=== PATIENT | female | born 1990 | race Caucasian/White ===

== ENCOUNTER 2025-10-23 13:47 | Observation (INO) ==
[2025-10-23] MEDS: OPTIRAY 320 125ml IV ONE (14:08)
--- NOTE | 2025-10-23 14:16 | Emergency Department Note ---
Impression & Plan Stroke-like symptoms, Acute right-sided weakness ED Provider Note NAME: TOSHA GONZALEZ AGE: 35 SEX: F : 1990 ARRIVES VIA: Walk-In INFORMANT: Patient, ED PROVIDER(S): Cameron Jones DO CHIEF COMPLAINT: Strokelike symptoms HPI: The patient is a 35-year-old female who presented to the emergency department through triage. She was made a stroke alert from triage. I evaluated the patient in the room A1 once she returned from CAT scan. The patient states that over the last few days she has not been feeling well. She was seen at a different emergency department locally for similar complaints. The patient states she has right sided weakness including her arm her leg and her face. She has a history of a stroke in the past but she states that her symptoms had almost completely resolved. She states she went to bed last evening around 7:30 PM. She was feeling a little off and had a slight headache and when she woke today she felt like this. The patient denies having any fever or neck pain. The patient's been compliant with her outpatient medications otherwise. ROS: See above HPI for pertinent positives & negatives. A total of 10 systems reviewed and were otherwise negative. PAST MEDICAL HISTORY: See Below PAST SURGICAL HISTORY: See Below FAMILY HISTORY: See Below SOCIAL HISTORY: See Below HOME MEDICATIONS: See Below ALLERGIES: See Below VITALS: See Below PHYSICAL EXAMINATION: GENERAL: Patient is awake alert in no acute distress patient is resting comfortably and showing no signs of anxiety EYES: The conjunctivae are clear. The pupils are round and reactive. Extraocular muscles are intact. EARS, NOSE, MOUTH AND THROAT: The nose is without any evidence of any deformity. NECK: The neck is nontender and supple. RESPIRATORY: Normal respiratory effort is noted there is no evidence of wheezing rhonchi or rales CARDIOVASCULAR: Regular rate and rhythm noted there no murmurs rubs or gallops normal S1 normal S2. GASTROINTESTINAL: The abdomen is soft. Abdomen is nontender. MUSCULOSKELETAL/EXTREMITIES: There is no evidence of gross deformity full range of motion is noted in the hips and shoulders. SKIN: There is no obvious evidence of any rash. There are no petechiae, pallor or cyanosis noted. NEUROLOGIC: Patient is awake alert and oriented x3. There is a drift in the right upper extremity. The patient is able to hold each leg off of the bed but the right leg does fall to bed and under 5 seconds. There is a facial droop with forehead sparing noted. Speech is clear. MEDICAL DECISION MAKING: The patient is a 35-year-old female who presented to the emergency department for strokelike symptoms. The patient has a history of similar episodes in the past. She was outside of the 4-1/2-hour window so she was not considered a candidate for TNK. Despite having an elevated NIH stroke score the patient did not have a large vessel occlusion. The patient was evaluated by the telestroke neurologist. I discussed the patient's laboratory and radiographic studies with her. Given her ongoing symptoms she would be a better candidate for inpatient management. I discussed her condition with the on-call [facility] hospitalist. They have agreed to evaluate the patient in the emergency department for further management and disposition. Triage Nursing notes reviewed. Prior medical records reviewed Vital Signs: reviewed and remarkable for no significant abnormalities Differential diagnosis: Infection, dehydration, metabolic abnormality, hypo/hyperglycemia, electrolyte disturbance, anemia, hypoxia, cardiac sources, intracerebral event, toxicologic, neurologic, as well as other pathologies. ER treatment provided: See below Diagnostics interpreted by me: ECG: EKG was obtained in the emergency department. My interpretation is normal sinus rhythm at 78 bpm. There was no ectopy. There was no acute ST segment abnormalities noted. QTc was 440 ms. Cardiac Monitoring: An order was placed for continuous cardiac monitoring. The monitor shows a rate of 79 bpm with sinus rhythm. Laboratory studies: As stated above and show below. Imaging studies: See below. Radiographic imaging was reviewed by myself Consultation(s): I discussed this case with Dr. Hanson who is on-call for telestroke neurology at [facility]. I discussed this case with Dr. Sierra who is on-call for the [facility] hospitalist group. Past Med/Surg History Problem List (Updated 10/23/25 @ 15:33 by Cameron Jones DO) Acute right-sided weakness (Acute) Stroke-like symptoms (Acute) Vertebral body hemangioma Prothrombin gene mutation Functional neurological symptom disorder (conversion disorder), with abnormal movement Apraxia Stenosis of intracranial vessel Seizure-like activity Hemiplegia affecting dominant side Stroke-like symptoms ADHD SHAN (generalized anxiety disorder) Vitamin D deficiency Anxiety Cervicalgia Dysarthria Aphasia Hemiplegic migraine Medical History Cervical cancer No pertinent past medical history No pertinent family history Surgical History H/O gastric bypass S/P dilatation and curettage S/P hysterectomy No pertinent past surgical history Family History Grandmother (Maternal) Breast cancer Mother Heart disease Father Sleep apnea Social History Smoking Status: Former smoker Preferred Language: Norwegian Communication Ability: Effective Spice Cleaner Required: No Beliefs That Will Affect Care: Spiritual Current Living Situation: Spouse Feels Safe at Home: Yes Allergies Allergies Allergy/AdvReac Type Severity Reaction Status Date / Time cortisone Allergy Severe FACE & Verified 10/23/25 15:21 NECK SWELLED AFTER INJ IN LOWER BACK mushroom Allergy Severe Anaphylaxis Verified 10/23/25 15:21 tioconazole Allergy Severe SWELLED Verified 10/23/25 15:21 [From Monistat 1 VAGINAL (tioconazole)] OPENING "SHUT" Latex, Natural Rubber Allergy Intermediate Hives Verified 10/23/25 15:21 morphine Allergy Intermediate Hives Verified 10/23/25 15:21 yellow dye Allergy Intermediate HIVES-YELLOW Verified 10/23/25 15:21 DYE IN TATTOO cephalexin Allergy Unknown CAN'T Verified 10/23/25 15:21 REMEMBER yellow food coloring Allergy Intermediate Hives Uncoded 10/23/25 15:21 Home Meds Home Medications Medication Instructions Recorded Confirmed multivitamin 1 tab PO QAM 08/24/21 10/23/25 aspirin 81 mg tablet,delayed 81 mg PO DAILY 08/02/24 10/23/25 release atorvastatin 80 mg tablet 80 mg PO QPM 08/02/24 10/23/25 amitriptyline 25 mg tablet 25 mg PO HS 08/03/24 10/23/25 magnesium oxide 400 mg PO BID 08/03/24 10/23/25 ondansetron HCl 4 mg tablet 4 mg PO Q6H PRN NAUSEA/VOMITING 08/03/24 10/23/25 acetaminophen 325 mg tablet 325 mg PO BID 10/23/25 10/23/25 cholecalciferol (vitamin D3) 25 25 mcg PO DAILY 10/23/25 10/23/25 mcg (1,000 unit) capsule (Vitamin D3) cyclobenzaprine 5 mg tablet 5 mg PO TID 10/23/25 10/23/25 duloxetine 20 mg capsule,delayed 40 mg PO DAILY 10/23/25 10/23/25 release ergocalciferol (vitamin D2) 1,250 50,000 unit PO WK 10/23/25 10/23/25 mcg (50,000 unit) capsule famotidine 10 mg tablet 10 mg PO BIDM 10/23/25 10/23/25 hydroxyzine pamoate 25 mg capsule 25 mg PO BID 10/23/25 10/23/25 sennosides 8.6 mg tablet 8.6 mg PO HS 10/23/25 10/23/25 verapamil 40 mg tablet 40 mg PO BID 10/23/25 10/23/25 Previous Rx's Medication Instructions Recorded valproic acid (as sodium salt) 500 500 mg (10 mL) PO BID #1,000 mL 10/30/24 mg/10 mL (10 mL) oral solution Results & Data (ED) Vital Signs Vital Signs - 24 hr 10/23/25 13:47 10/23/25 14:09 10/23/25 14:15 Temperature 36.6 C Temperature Source Temporal Artery Scan Pulse Rate 79 84 Pulse Rate [Apical] Pulse Rate from SpO2 Sensor 83 Respiratory Rate 18 19 Blood Pressure 121/84 Blood Pressure [Left Arm] Blood Pressure Mean 96 Blood Pressure Mean [Left Arm] Pulse Oximetry 97 98 Oxygen Delivery Method Room Air Room Air Sepsis Recent Fever Within 48 Hours No Sepsis New/Unexplained Change in Mental Status N/A Sepsis Action Taken by Nursing No Action Required 10/23/25 14:16 10/23/25 14:17 10/23/25 14:29 Temperature Temperature Source Pulse Rate Pulse Rate [Apical] 78 Pulse Rate from SpO2 Sensor Respiratory Rate 18 Blood Pressure 118/84 123/83 Blood Pressure [Left Arm] 139/106 H Blood Pressure Mean 92 95 Blood Pressure Mean [Left Arm] 117 Pulse Oximetry 98 Oxygen Delivery Method Room Air Sepsis Recent Fever Within 48 Hours Sepsis New/Unexplained Change in Mental Status Sepsis Action Taken by Nursing 10/23/25 14:30 10/23/25 15:00 10/23/25 15:25 Temperature Temperature Source Pulse Rate 81 74 Pulse Rate [Apical] 79 Pulse Rate from SpO2 Sensor 73 Respiratory Rate 19 13 16 Blood Pressure 119/71 Blood Pressure [Left Arm] 119/71 Blood Pressure Mean 87 Blood Pressure Mean [Left Arm] 87 Pulse Oximetry 99 99 100 Oxygen Delivery Method Room Air Room Air Room Air Sepsis Recent Fever Within 48 Hours Sepsis New/Unexplained Change in Mental Status Sepsis Action Taken by Half-Way Medications Current Medication List: was personally reviewed by me Laboratory Data Attestation: I reviewed the patient's lab results. 10/23/25 14:15 10/23/25 14:15 Lab Results 10/23/25 Range/Units 14:15 WBC 5.61 (4.8-10.8) K/ul RBC 4.09 L (4.20-5.40) M/uL Hgb 11.2 L (12.0-16.0) g/dL Hct 34.3 L (37.0-47.0) % MCV 83.9 (80.0-100.0) fL MCH 27.4 (25.0-34.0) pg MCHC 32.7 (32.0-36.0) g/dL RDW Std Deviation 39.2 (36.4-46.3) fL RDW Coeff of Robert 13.0 (11.5-14.5) % Plt Count 172 (130-400) K/uL MPV 9.9 (9.4-12.4) fL Immature Gran % (Auto) 0.2 % Neut % (Auto) 52.4 % Lymph % (Auto) 38.7 % [place] % (Auto) 6.6 % Eos % (Auto) 1.6 % Baso % (Auto) 0.5 % Neut # (Auto) 2.94 (1.40-6.50) K/uL Lymph # (Auto) 2.17 (1.20-3.40) K/uL [place] # (Auto) 0.37 (0.11-0.59) K/uL Eos # (Auto) 0.09 (0.00-0.50) K/uL Baso # (Auto) 0.03 (0.00-0.20) K/uL Immature Gran # (Auto) 0.01 (0.01-0.20) K/uL ESR < 1 (0-20) mm/hr PT 11.0 (9.0-12.0) Seconds INR 1.0 (0.9-1.1) APTT 26 (21-31) Seconds PTT Ratio 1.0 Sodium 136 (136-145) mmol/L Potassium 3.4 L (3.5-5.1) mmol/L Chloride 104 (98-107) mmol/L Carbon Dioxide 26 (21-32) mmol/L Anion Gap 6 (3-11) BUN 12 (6-23) mg/dl Creatinine 0.64 (0.6-1.2) mg/dl Est Cr Clr Drug Dosing 127.3 ml/min eGFR 119.59 BUN/Creatinine Ratio 18.8 (10-20) Glucose 85 (70-99(Fasting)) mg/dl Calcium 8.5 L (8.6-10.3) mg/dl Magnesium 2.0 (1.7-2.4) mg/dl Total Bilirubin 0.4 (0.2-1.0) mg/dl AST 13 (13-39) U/L ALT 13 (7-52) U/L Alkaline Phosphatase 43 (34-104) U/L Troponin I High Sens < 2.3 (0-14) pg/ml C-Reactive Protein < 0.50 (0-0.5) mg/dl Total Protein 6.4 (6.0-8.3) gm/dl Albumin 3.7 (3.4-5.0) gm/dl Globulin 2.7 (2.5-4.0) gm/dl Albumin/Globulin Ratio 1.4 (0.9-2) HCG, Qual Negative (Negative) Administered Medications Discontinued Medications Ioversol (Optiray 320 125ml) 120 ml IV ONCE ONE Stop: 10/23/25 14:09 Last Admin: 10/23/25 14:08 Dose: 120 ml Documented By: LUZ MARINA Imaging Data Attestation: I personally reviewed and interpreted this imaging study as follows: My Impression: 1 view chest x-ray was obtained in the emergency department. My interpretation is no free air or definite infiltrate, final report below. Radiologist's Impression: Chest X-Ray 10/23/25 13:54 XR chest 1V portable CLINICAL HISTORY: stroke alert COMPARISON STUDY: Chest radiograph August 24, 2021. FINDINGS: Lung volumes are normal. Lungs are clear. There is no pneumothorax or pleural effusion. Cardiac size is normal. Mediastinal contours are normal. There is no evidence for pulmonary edema. Electronic device projects over the left chest. IMPRESSION: No acute cardiopulmonary findings. ACT 112: Negative or not required by law. Electronically signed by: Manoj Interiano M.D. 10/23/2025 2:[address] 10/23/25 13:54 CT SCAN OF THE BRAIN WITHOUT IV CONTRAST CLINICAL HISTORY: Right-sided weakness. History of prior stroke. COMPARISON STUDY: MRI dated 05/06/2025 TECHNIQUE: Unenhanced axial CT scan of the brain was performed from the vertex to the skull base. A dose lowering technique was utilized adhering to the principles of ALARA. CT DOSE: FINDINGS: No intraventricular extra-axial mass lesions are visualized. There is no CT evidence of acute cortical infarction. The ventricular system is of normal size and configuration for age. There is no midline shift. There is no evidence of acute hemorrhage. No orbital lesions are visualized. No calvarial lesions are visualized. IMPRESSION: Normal MRI of the brain. ACT 112: Negative or not required by law. Electronically signed by: Steven Nguyễn M.D. 10/23/2025 2:18 PM Head CTA 10/23/25 13:54 CT angio head w con CLINICAL HISTORY: 35 years-old Female with neuro deficit, acute stroke suspected. Acute stroke like symptoms COMPARISON STUDY: Head CT same day TECHNIQUE: Following the IV administration of 120 cc of Optiray, CT angiogram of the brain was performed from the skull base to the vertex. Images are reviewed in the axial, sagittal, and coronal planes. 3-D MIPS images are created and assessed. IV contrast was administered without complication. All measurements were obtained according to NASCET criteria. A dose lowering technique was utilized adhering to the principles of ALARA. FINDINGS: CT BRAIN: Dictated separately. CT ANGIOGRAM OF THE BRAIN: The imaged bilateral internal carotid arteries are patent. The bilateral anterior and middle cerebral arteries are also patent. The vertebrobasilar system and posterior cerebral arteries are widely patent. There is no aneurysm, high-grade stenosis, or proximal branch occlusion identified. Dural sinuses appear patent. IMPRESSION: Unremarkable CTA of the head. ACT 112: Negative or not required by law. The above report was generated using voice recognition software. It may contain grammatical, syntax or spelling errors. Electronically signed by: Leonel Concepcion M.D. 10/23/2025 2:30 PM Neck CTA 10/23/25 13:54 CT ANGIOGRAPHY OF THE NECK WITH CONTRAST CLINICAL HISTORY: neuro deficit, acute stroke suspected. Right-sided weakness. COMPARISON STUDY: CTA of the neck October 10, 2024. Technique: CT angiography of the carotid and vertebral arteries was obtained using Optiray and 3D reconstruction on an independent workstation. NASCET criteria was utilized. Automated exposure control was utilized for the study. A dose lowering technique was utilized adhering to the principles of ALARA. CT DOSE: 950.97 mGy.cm Findings: Visualized portions of the lung apices are unremarkable. There are no cervical spine fractures. There is no cervical lymphadenopathy. The bilateral common carotid, cervical internal carotid and vertebral arteries are patent. The right vertebral artery is dominant. There is no stenosis, aneurysm or dissection within the major vasculature of the neck. IMPRESSION: Unremarkable CTA of the neck. ACT 112: Negative or not required by law. Electronically signed by: Manoj Interiano M.D. 10/23/2025 2:24 PM Discharge Plan Visit Data Chief Complaint: Neuro Symptoms/Deficit Stated Complaint: FACIAL DROOPING, R SIDE WEAKNESS, HX STROKE ED Provider: Cameron Jones Discharge Problem: Stroke-like symptoms, Acute right-sided weakness Patient Disposition: Being Evaluated by Hospitalist Condition: Fair Forms Stand Alone Forms: My [facility] [place] [employer] Prescriptions Prescriptions: No Action atorvastatin 80 mg tablet 80 mg PO QPM aspirin 81 mg tablet,delayed release (DR/EC) 81 mg PO DAILY amitriptyline 25 mg tablet 25 mg PO HS ondansetron HCl 4 mg tablet 4 mg PO Q6H PRN (Reason: NAUSEA/VOMITING) magnesium oxide 400 mg magnesium capsule 400 mg PO BID valproic acid (as sodium salt) 500 mg/10 mL (10 mL) solution 500 mg PO BID Qty: 1000 2RF multivitamin Tablet 1 tab PO QAM sennosides 8.6 mg tablet 8.6 mg PO HS acetaminophen 325 mg tablet 325 mg PO BID famotidine 10 mg tablet 10 mg PO BIDM Rx Instructions: 0800 & 1600 ergocalciferol (vitamin D2) 1,250 mcg (50,000 unit) capsule 50,000 unit PO WK Rx Instructions: MONDAYS hydroxyzine pamoate 25 mg capsule 25 mg PO BID cholecalciferol (vitamin D3) [Vitamin D3] 25 mcg (1,000 unit) Capsule 25 mcg PO DAILY cyclobenzaprine 5 mg tablet 5 mg PO TID duloxetine 20 mg capsule,delayed release(DR/EC) 40 mg PO DAILY verapamil 40 mg tablet 40 mg PO BID Referrals Referrals: Liu Estrella, [employer] MACHINE OPERATOR-C [Primary Care Provider] -
--- NOTE | 2025-10-23 14:19 | CT Scan Report ---
CT SCAN OF THE BRAIN WITHOUT IV CONTRAST CLINICAL HISTORY: Right-sided weakness. History of prior stroke. COMPARISON STUDY: MRI dated 05/06/2025 TECHNIQUE: Unenhanced axial CT scan of the brain was performed from the vertex to the skull base. A dose lowering technique was utilized adhering to the principles of ALARA. CT DOSE: FINDINGS: No intraventricular extra-axial mass lesions are visualized. There is no CT evidence of acute cortical infarction. The ventricular system is of normal size and configuration for age. There is no midline shift. There is no evidence of acute hemorrhage. No orbital lesions are visualized. No calvarial lesions are visualized. IMPRESSION: Normal MRI of the brain. ACT 112: Negative or not required by law. Electronically signed by: Steven Nguyễn M.D. 10/23/2025 2:18 PM
--- NOTE | 2025-10-23 14:25 | CT Scan Report ---
CT ANGIOGRAPHY OF THE NECK WITH CONTRAST CLINICAL HISTORY: neuro deficit, acute stroke suspected. Right-sided weakness. COMPARISON STUDY: CTA of the neck October 10, 2024. Technique: CT angiography of the carotid and vertebral arteries was obtained using Optiray and 3D rec onstruction on an independent workstation. NASCET criteria was utilized. Automated exposure control was utilized for the study. A dose lowering technique was utilized adhering to the principles of ALA RA. CT DOSE: 950.97 mGy.cm Findings: Visualized portions of the lung apices are unremarkable. There are no cervical spine fractu res. There is no cervical lymphadenopathy. The bilateral common carotid, cervical internal carotid an d vertebral arteries are patent. The right vertebral artery is dominant. There is no stenosis, aneury sm or dissection within the major vasculature of the neck. IMPRESSION: Unremarkable CTA of the neck. ACT 112: Negative or not required by law. Electronically signed by: Manoj Interiano M.D. 10/23/2025 2:24 PM
[2025-10-23 14:28] LABS: Hematocrit (blood only) 34.3 % (37.0-47.0); Hemoglobin 11.2 g/dL (12.0-16.0); Immature Granulocytes # (auto) 0.01 K/uL (0.01-0.20); Immature Granulocytes % (auto) 0.2 %; Mean Corpuscular Hemoglobin 27.4 pg (25.0-34.0); Mean Corpuscular Volume 83.9 fL (80.0-100.0); Platelet Count 172 K/uL (130-400); RDW Standard Deviation 39.2 fL (36.4-46.3); Red Blood Count 4.09 M/uL (4.20-5.40); White Blood Count 5.61 K/ul (4.8-10.8)
--- NOTE | 2025-10-23 14:31 | CT Scan Report ---
CT angio head w con CLINICAL HISTORY: 35 years-old Female with neuro deficit, acute stroke suspected. Acute stroke lik e symptoms COMPARISON STUDY: Head CT same day TECHNIQUE: Following the IV administration of 120 cc of Optiray, CT angiogram of the brain was perfor med from the skull base to the vertex. Images are reviewed in the axial, sagittal, and coronal planes . 3-D MIPS images are created and assessed. IV contrast was administered without complication. All me asurements were obtained according to NASCET criteria. A dose lowering technique was utilized adherin g to the principles of ALARA. FINDINGS: CT BRAIN: Dictated separately. CT ANGIOGRAM OF THE BRAIN: The imaged bilateral internal carotid arteries are patent. The bilateral anterior and middle cerebral arteries are also patent. The vertebrobasilar system and posterior cerebral arteries are widely kirk nt. There is no aneurysm, high-grade stenosis, or proximal branch occlusion identified. Dural sinuses appear patent. IMPRESSION: Unremarkable CTA of the head. ACT 112: Negative or not required by law. The above report was generated using voice recognition software. It may contain grammatical, syntax o r spelling errors. Electronically signed by: Leonel Concepcion M.D. 10/23/2025 2:30 PM
--- NOTE | 2025-10-23 14:34 | XRay Report ---
XR chest 1V portable CLINICAL HISTORY: stroke alert COMPARISON STUDY: Chest radiograph August 24, 2021. FINDINGS: Lung volumes are normal. Lungs are clear. There is no pneumothorax or pleural effusion. Car diac size is normal. Mediastinal contours are normal. There is no evidence for pulmonary edema. Elect ronic device projects over the left chest. IMPRESSION: No acute cardiopulmonary findings. ACT 112: Negative or not required by law. Electronically signed by: Manoj Interiano M.D. 10/23/2025 2:33 PM
--- NOTE | 2025-10-23 14:43 | Electrocardiogram Report ---
Test Reason : Blood Pressure : */* mmHG Vent. Rate : 78 BPM Atrial Rate : 78 BPM P-R Int : 132 ms QRS Dur : 98 ms QT Int : 386 ms P-R-T Axes : 73 34 45 degrees QTcB Int : 440 ms Normal sinus rhythm Incomplete right bundle branch block Borderline ECG No previous ECGs available Confirmed by Caemron Sal ([id number]) on 10/23/2025 2:42:53 PM Referred By: Confirmed By: Cameron Sal
[2025-10-23 14:46] LABS: Alanine Aminotransferase 13 U/L (7-52); Albumin Globulin Ratio 1.4 (0.9-2); Albumin Level 3.7 gm/dl (3.4-5.0); Alkaline Phosphatase 43 U/L (34-104); Anion Gap 6 (3-11); Bilirubin,Total 0.4 mg/dl (0.2-1.0); Blood Urea Nitrogen 12 mg/dl (6-23); Calcium 8.5 mg/dl (8.6-10.3); Carbon Dioxide 26 mmol/L (21-32); Chloride 104 mmol/L (98-107); Creatinine Clr Calc Pharmacy 127.3 ml/min; Globulin 2.7 gm/dl (2.5-4.0); Glucose 85 mg/dl (70-99(Fasting)); Magnesium 2.0 mg/dl (1.7-2.4); Potassium 3.4 mmol/L (3.5-5.1); Sodium 136 mmol/L (136-145); Total Protein 6.4 gm/dl (6.0-8.3)
[2025-10-23 14:49] LABS: Pregnancy Test, Serum Negative (Negative)
[2025-10-23 14:57] LABS: INR 1.0 (0.9-1.1); Partial Thromboplastin Time 26 Seconds (21-31); Prothrombin Time 11.0 Seconds (9.0-12.0)
--- NOTE | 2025-10-23 16:38 | History & Physical Report ---
Date of Service October 23, 2025 Assessment & Plan (1) Stroke-like symptoms: (2) Prothrombin gene mutation: (3) Seizure-like activity: Plan In summary this is a 35-year-old female who presents with sudden onset right sided facial weakness that is persisted overnight from initial symptoms onset on 09/22 in the late evening #Stroke-Like Symptoms // Prothrombin gene mutation Patient presented with right sided facial weakness; last known well was in the late afternoon on 10/22; had previous presentation in 06/2024 at that time was assessed as TIA/CVA, again presented with the similar symptoms specifically with only right sided facial weakness in the early portion of 09/2025, treated as Mobley's palsy and resolved; does follow with neurology in the outpatient setting with recent assessment to rule out multiple sclerosis which was negative; ABCD2 score of 2, NIHSS score of 4 (3 points of which are residual symptoms from prior event in 2023); in summary, at this time we will continue to manage as a presumed CVA until proven otherwise by imaging studies - 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 - No indication for antiplatelet loading at this time based on ABCD2 and NIHSS; if MRI is without evidence of CVA, would anticipate not pursuing DAPT as alternative non-vascular cause is more likely - Pending A1c - MRI brain without contrast pending - No indication for TTE at this time; study obtained at external hospital facility in 06/2024 was without evidence of cardiac shunt - No clear indication for IVF at this time - Neurology consulted #Seizure-like activity Chronic condition with reported seizure episode on 10/21, described in similarity to an abscence seizure; nonadherent with established antiepileptic therapy in the outpatient setting, will resume during hospital stay; stroke-like symptoms may be recrudescence of prior neurologic injury in the setting of recent breakthrough seizure, though unsure if this is well evidenced The remainder the patient's chronic medical conditions are stable and do not require adjustment to their outpatient regimen at this time History of Present Illness Chief Complaint: Sudden onset right facial weakness Primary Care Provider: EDUIN [place] Ms. Marcano is a 35-year-old female whose active medical conditions include hemip legic migraine, epilepsy, functional neurologic symptom disorder, heterozygous prothrombin gene mutation, vertebral body hemangioma among other chronic medical conditions who presents to the [facility] on 10/23 due to sudden onset and persistent right facial weakness that began in the evening of 10/22. The patient was recently evaluated at an external hospital system for similar presentation, diagnosed with Mobley's palsy and given a course of acyclovir with improvement of their symptomatology. At that time the facial weakness involve the entirety of the right face. At presentation today, the patient's weakness primarily involves the face beneath the level of the eye on the right side again. They had similar symptoms that they presented with to an external hospital system approximately 1 year prior with concerns of TIA/CVA. At that time the patient had also presented with right upper and lower extremity weakness, which they still have some degree of to this point in time however are without acute worsening of these symptoms. The patient does endorse slight worsening of their right lower extremity weakness, having increased use of a cane that was previously provided to them for recovery in the past few days. He denies any recent medication adjustments or additions in the outpatient setting. They did recently have diagnostic assessment for possible multiple sclerosis as well as hypercoagulability panel which revealed heterozygosity for prothrombin gene mutation. They were referred to hematology for evaluation who recommended initiation of DOAC therapy which was deferred as the patient does have intermittent episodes of bloody stools which have not yet been evaluated in the outpatient setting. The patient does report having a "seizure episode" that occurred on 10/21 that was a prolonged period of "staring". They have not had an episode of this in quite some time however the patient does report nonadherence with their prescribed valproic acid. Allergies Allergy/AdvReac Type Severity Reaction Status Date / Time cortisone Allergy Severe FACE & Verified 10/23/25 15:21 NECK SWELLED AFTER INJ IN LOWER BACK mushroom Allergy Severe Anaphylaxis Verified 10/23/25 15:21 tioconazole Allergy Severe SWELLED Verified 10/23/25 15:21 [From Monistat 1 VAGINAL (tioconazole)] OPENING "SHUT" Latex, Natural Rubber Allergy Intermediate Hives Verified 10/23/25 15:21 morphine Allergy Intermediate Hives Verified 10/23/25 15:21 yellow dye Allergy Intermediate HIVES-YELLOW Verified 10/23/25 15:21 DYE IN TATTOO cephalexin Allergy Unknown CAN'T Verified 10/23/25 15:21 REMEMBER yellow food coloring Allergy Intermediate Hives Uncoded 10/23/25 15:21 Home Medications Medication Instructions Recorded Confirmed Type multivitamin 1 tab PO QAM 08/24/21 10/23/25 History aspirin 81 mg tablet,delayed 81 mg PO DAILY 08/02/24 10/23/25 History release atorvastatin 80 mg tablet 80 mg PO QPM 08/02/24 10/23/25 History amitriptyline 25 mg tablet 25 mg PO HS 08/03/24 10/23/25 History magnesium oxide 400 mg PO BID 08/03/24 10/23/25 History ondansetron HCl 4 mg tablet 4 mg PO Q6H PRN NAUSEA/VOMITING 08/03/24 10/23/25 History valproic acid (as sodium salt) 500 500 mg (10 mL) PO BID #1,000 mL 10/30/24 10/23/25 Rx mg/10 mL (10 mL) oral solution acetaminophen 325 mg tablet 325 mg PO BID 10/23/25 10/23/25 History cholecalciferol (vitamin D3) 25 25 mcg PO DAILY 10/23/25 10/23/25 History mcg (1,000 unit) capsule (Vitamin D3) cyclobenzaprine 5 mg tablet 5 mg PO TID 10/23/25 10/23/25 History duloxetine 20 mg capsule,delayed 40 mg PO DAILY 10/23/25 10/23/25 History release ergocalciferol (vitamin D2) 1,250 50,000 unit PO WK 10/23/25 10/23/25 History mcg (50,000 unit) capsule famotidine 10 mg tablet 10 mg PO BIDM 10/23/25 10/23/25 History hydroxyzine pamoate 25 mg capsule 25 mg PO BID 10/23/25 10/23/25 History sennosides 8.6 mg tablet 8.6 mg PO HS 10/23/25 10/23/25 History verapamil 40 mg tablet 40 mg PO BID 10/23/25 10/23/25 History Past Med/Surg History Problem List (Updated 10/23/25 @ 17:06 by Florencio Sierra DO) Stroke-like symptoms (Acute) Vertebral body hemangioma (Chronic) Prothrombin gene mutation (Chronic) Functional neurological symptom disorder (conversion disorder), with abnormal movement (Chronic) Apraxia (Chronic) Stenosis of intracranial vessel (Chronic) Seizure-like activity (Chronic) Hemiplegia affecting dominant side (Chronic) SHAN (generalized anxiety disorder) (Chronic) Vitamin D deficiency (Chronic) Cervicalgia (Chronic) Hemiplegic migraine (Chronic) Medical History (Updated 10/23/25 @ 17:06 by Florencio Sierra DO) Cervical cancer Surgical History (Updated 10/23/25 @ 17:06 by Florencio Sierra DO) H/O gastric bypass S/P dilatation and curettage S/P hysterectomy Family History Grandmother (Maternal) Breast cancer Mother Heart disease Father Sleep apnea Social History Smoking Status: Former smoker Preferred Language: Persian Communication Ability: Effective Credit Collection Associate Required: No Beliefs That Will Affect Care: Spiritual Current Living Situation: Spouse Feels Safe at Home: Yes Review of Systems Review of Systems: Review of neurologic, constitutional, cardiovascular, pulmonary, gastrointestinal was unremarkable except for pertinent positive and negative findings discussed above Physical Exam Physical Exam: General: Adult female in no acute distress Vital Signs: Reviewed HEENT: Moist mucous membranes; pupils equally round and reactive to light; extraocular motion intact; no gross visual field deficits nor loss of visual acuity Pulmonary: Symmetric chest wall excursion without restriction; clear to auscultation bilaterally Cardiovascular: Regular rate and rhythm without murmurs, rubs, or gallops; S1 and S2 normal; right radial pulse 2+; no notable lower extremity edema Gastrointestinal: Soft, nontender; fullness appreciated in the area of the ascending colon and hepatic flexure with increased dullness to percussion compared to the remaining course of the colon without associated tenderness Musculoskeletal: No appreciable muscle atrophy nor anasarca Neurologic: Cranial nerves II through IV, , and VIII through XII intact; slight diminished sensation to touch involving right V2 and V3 and slight right sided nasolabial flattening and asymmetric smile; slightly diminished gross st rength assessment involving the right upper extremity compared to left with similar findings of the lower extremities; loss of sensation involving the L5 dermatome of the right lower extremity; speech is clear, with regular gustavo Results & Data Results & Data Vital Signs (Past 12 Hours) Vital Signs Temp Pulse Pulse Resp BP BP Pulse Ox 10/23/25 15:25 79 16 119/71 100 10/23/25 15:00 74 13 119/71 99 10/23/25 14:30 81 19 99 10/23/25 14:29 123/83 10/23/25 14:17 118/84 10/23/25 14:16 78 18 139/106 H 98 10/23/25 14:15 84 19 98 10/23/25 14:09 10/23/25 14:08 78 10/23/25 13:47 36.6 C 79 18 121/84 97 O2 Del Method 10/23/25 15:25 Room Air 10/23/25 15:00 Room Air 10/23/25 14:30 Room Air 10/23/25 14:29 10/23/25 14:17 10/23/25 14:16 Room Air 10/23/25 14:15 Room Air 10/23/25 14:09 Room Air 10/23/25 14:08 10/23/25 13:47 Diagnostic Findings Portable chest film without acute findings Head CT without contrast was without any abnormal findings CTA head and neck similarly were without any acute abnormal findings Code Status & VTE Plan Code Status Full Code VTE Prophylaxis Plan VTE Prophylaxis will be ordered: Yes PG Care Time/CCT Total # of Minutes Spent Total Time Spent with Patient: Total time spent is greater than 50% in coordination of care (as documented) at patient's floor/unit and/or counseling patient: Coding Level of Care Code 72144 INT INP/OBS CARE 2/55MIN Diagnoses Stroke-like symptoms R29.90 Prothrombin gene mutation D68.52 Seizure-like activity R56.9
[2025-10-23] MEDS ORDERED: PHARMACIST DISCHARGE MED REC CONSULT PRN (18:10)
--- NOTE | 2025-10-23 20:08 | Magnetic Resonance Report ---
MRI of the brain performed without IV contrast History: Slurred speech Comparison: 05/06/2025 Technique: Sagittal T1-weighted and axial T2-weighted, T2/FLAIR and diffusion-weighted with ADC map images of the brain were obtained without IV contrast. Findings: No evidence for intracranial mass lesion, mass-effect, midline shift, or abnormal extra-axial fluid collection. The ventricles and sulci are within normal limits for age. No abnormally reduced diffusion or evidence for acute infarct. Normal intravascular flow voids. Impression: Normal brain MRI Electronically signed by Robinson Pimentel 10-23-2025 8:08 PM
[2025-10-23] MEDS: FAMOTIDINE 10 MG TABLET PO SCH (21:16)
[2025-10-23] MEDS: ENOXAPARIN INJ 40 MG/0.4 ML SYR SQ SCH (21:17)
[2025-10-23] MEDS: VALPROIC ACID SOLN 500 MG/10 ML UDC PO SCH (21:17)
[2025-10-23] MEDS: ATORVASTATIN 40 MG TAB PO SCH (21:19)
[2025-10-23] MEDS: VERAPAMIL HCL 40 MG TAB PO SCH (21:19)
[2025-10-23] MEDS: CYCLOBENZAPRINE HCL 5 MG TAB PO SCH (21:20)
[2025-10-23] MEDS: AMITRIPTYLINE HCL 25 MG TAB PO SCH (21:21)
[2025-10-23] MEDS: ACETAMINOPHEN 500 MG TAB PO PRN (21:34)
[2025-10-24 06:44] LABS: Hematocrit (blood only) 36.2 % (37.0-47.0); Hemoglobin 12.1 g/dL (12.0-16.0); Mean Corpuscular Hemoglobin 28.2 pg (25.0-34.0); Mean Corpuscular Volume 84.4 fL (80.0-100.0); Platelet Count 172 K/uL (130-400); RDW Standard Deviation 39.8 fL (36.4-46.3); Red Blood Count 4.29 M/uL (4.20-5.40); White Blood Count 4.94 K/ul (4.8-10.8)
--- NOTE | 2025-10-24 07:27 | Hospitalist Progress Note ---
Date of Service October 24, 2025 Assessment & Plan (1) Stroke-like symptoms: (2) Prothrombin gene mutation: (3) Seizure-like activity: Plan In summary this is a 35-year-old female who presents with sudden onset right sided facial weakness that is persisted overnight from initial symptoms onset on 09/22 in the late evening #Stroke-Like Symptoms // Prothrombin gene mutation Patient presented with right sided facial weakness; last known well was in the late afternoon on 10/22; had previous presentation in 06/2024 at that time was assessed as TIA/CVA, again presented with the similar symptoms specifically with only right sided facial weakness in the early portion of 09/2025, treated as Mobley's palsy and resolved; does follow with neurology in the outpatient setting with recent assessment to rule out multiple sclerosis which was negative; ABCD2 score of 2, NIHSS score of 4 (3 points of which are residual symptoms from prior event in 2023); in summary, at this time we will continue to manage as a presumed CVA until proven otherwise by imaging studies - 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 - No indication for antiplatelet loading at admission based on ABCD2 and NIHSS - Pending A1c - MRI brain without contrast without evidence of vascular event - No indication for TTE at this time; study obtained at external hospital facility in 06/2024 was without evidence of cardiac shunt - No clear indication for IVF at this time - Neurology consulted #Seizure-like activity Chronic condition with reported seizure episode on 10/21, described in similarity to an absence seizure; nonadherent with established antiepileptic therapy in the outpatient setting, will resume during hospital stay; stroke-like symptoms may be recrudescence of prior neurologic injury in the setting of recent breakthrough seizure, though unsure if this is well evidenced The remainder the patient's chronic medical conditions are stable and do not require adjustment to their outpatient regimen at this time Admission and Anticipated Discharge Date Admission Date: October 23, 2025 Subjective Ms. Marcano is a 35-year-old female whose active medical conditions include hemiplegic migraine, epilepsy, functional neurologic symptom disorder, heterozygous prothrombin gene mutation, vertebral body hemangioma among other chronic medical conditions who presents to the [facility] on 10/23 due to sudden onset and persistent right facial weakness that began in the evening of 10/22. No acute overnight events Review of Systems Review of Systems: Review of neurologic, constitutional, cardiovascular, pulmonary, gastrointestinal was unremarkable except for pertinent positive and negative findings discussed above Physical Exam Physical Exam: General: Adult female in no acute distress Vital Signs: Reviewed HEENT: Moist mucous membranes; pupils equally round and reactive to light; extraocular motion intact; no gross visual field deficits nor loss of visual acuity Pulmonary: Symmetric chest wall excursion without restriction; clear to auscultation bilaterally Cardiovascular: Regular rate and rhythm without murmurs, rubs, or gallops; S1 and S2 normal; right radial pulse 2+; no notable lower extremity edema Gastrointestinal: Soft, nontender; fullness appreciated in the area of the ascending colon and hepatic flexure with increased dullness to percussion compared to the remaining course of the colon without associated tenderness Musculoskeletal: No appreciable muscle atrophy nor anasarca Neurologic: Cranial nerves II through IV, , and VIII through XII intact; slight diminished sensation to touch involving right V2 and V3 and slight right sided nasolabial flattening and asymmetric smile; remains with diminished strength of the right upper extremity compared to left; the right lower extremity has more notable weakness involving hip extension, knee flexion, and dorsiflexion in comparison to right hip flexion, knee extension, and plantarflexion; the entirety of the right lower extremity does have diminished weakness compared to the left; loss of sensation involving the L5 dermatome of the right lower extremity; speech is clear, with regular gustavo Results & Data Results & Data Vital Signs (Past 12 Hours) Vital Signs Temp Pulse Pulse Resp BP Pulse Ox O2 Del Method 10/24/25 07:19 69 10/24/25 05:47 74 10/24/25 04:03 36.5 C 85 18 112/76 97 Room Air 10/24/25 03:50 81 10/23/25 22:35 36.7 C 84 16 100/62 97 Room Air Diagnostic Findings MRI Brain without evidence of acute ischemic event PG Care Time/CCT Total # of Minutes Spent Total Time Spent with Patient: Total time spent is greater than 50% in coordination of care (as documented) at patient's floor/unit and/or counseling patient: Coding Level of Care Code 05869 SUB INP/OBS CARE 2/35MIN Diagnoses Stroke-like symptoms R29.90 Prothrombin gene mutation D68.52 Seizure-like activity R56.9
[2025-10-24 07:38] LABS: Albumin Level 4.2 gm/dl (3.4-5.0); Anion Gap 6.0 (3-11); Blood Urea Nitrogen 13.0 mg/dl (6-23); Calcium 8.7 mg/dl (8.6-10.3); Carbon Dioxide 28.0 mmol/L (21-32); Chloride 106.0 mmol/L (98-107); Creatinine Clr Calc Pharmacy 108.8 ml/min; Glucose 84.0 mg/dl (70-99(Fasting)); Potassium 4.0 mmol/L (3.5-5.1); Sodium 140.0 mmol/L (136-145)
[2025-10-24] MEDS: POLYETHYLENE (MIRALAX) 17 GM PACK PO SCH (07:42)
[2025-10-24] MEDS: ASPIRIN 81 MG ECTAB PO SCH (07:43)
[2025-10-24] MEDS: CHOLECALCIFEROL 25 MCG (1000 UNITS) TAB PO SCH (07:43)
[2025-10-24 07:46] LABS: Hemoglobin A1C 5.4 % (4.5-5.6)
[2025-10-24] MEDS: POLYETHYLENE (MIRALAX) 17 GM PACK ONE (08:05)
[2025-10-24] MEDS: METOCLOPRAMIDE HCL INJ 5 MG/ML 2 ML VIAL IV STA (10:12)
--- NOTE | 2025-10-24 10:50 | Neurology Consultation ---
Date of Consultation October 24, 2025 Assessment & Plan (1) Complicated migraine: (2) Cervicalgia: (3) Prothrombin gene mutation: Plan This patient presented with strokelike symptoms with migraine headache and normal MRI of the brain. She has had similar episodes in the past with a longstanding history of intermittent migraine headaches. Overall, in the last 18 months, she has had extensive neurologic evaluation with numerous MRIs, lumbar puncture, EEGs, EMGs, and laboratory studies all being relatively unremarkable. Her picture is consistent with complicated migraine. Her current medication designed to prevent migraines is not working. She is on a good dose of Depakote at 500 mg twice a day and a low-dose of verapamil at 40 mg twice a day. Patient has prothrombin gene mutation and is technically at risk for clotting. She is on aspirin 81 mg daily. Her neurologic examination is largely unremarkable and I see no evidence of significant neurologic dysfunction Recommendations: 1. Change verapamil to 120 mg ER once daily 2. Strongly consider initiating a CGRP inhibitor such as Emgality or Ajovy to take monthly to prevent migraine headaches. This will be done as an outpatient. 3. Could use Nurtec 75 mg daily during this hospitalization to treat the migraine. Could use Nurtec as needed as an outpatient for migraines as well. 4. Avoid all triptans (no vasoconstrictors in patients with complicated migraine) 5. Consider extra 500 mg Depakote 1 time today 6. There is no indication for any additional neurologic testing at this time 7. Follow-up with Dr. Butcher (or neurology PA) 1 to 2 weeks after discharge. Overall, I spent a total of 90 minutes with this case including review of records, review of MRI films, direct evaluation of the patient, report generation, and discussion of the case with the patient and RN at bedside and Dr. Sierra including differential diagnosis and treatment options. History of Present Illness Reason for Consultation: Patient is a 35-year-old, who was asked to see at the request of Dr. Sierra, for neurologic consultation regarding strokelike symptoms and headaches Requesting Physician: Dr. Sierra Attending Physician: Florencio Sierra, DO History of Present Illness This patient has a rather complicated history for someone in her early 30s. The patient has had migraine headaches since her teen years and these have been intermittent and consistent over the years. In 2012 she had a lump removed from her left breast but I do not believe there was cancer diagnosed. In 2018 patient was diagnosed with cervical cancer and had 6 months of chemotherapy. She had up getting a complete hysterectomy. The patient has been on amitriptyline 25 mg each evening for "nerve pain" and to help her sleep. She has chronic cervical spine issues. On July 08, 2024, the patient had the onset of right sided weakness in the face arm and leg, dysarthria, and a headache. She presented to a local emergency room, given TNK, and transferred to [facility]. Evaluation including MRI of the brain was unremarkable and she was discharged with a diagnosis of complicated migraine. She was put on Depakote. She had persistent but mild weakness in the right arm and leg although the face and speech improved back to baseline. Patient ended up seeing Dr. Butcher who she has been following since July 2024. An EEG in August 2024 was unremarkable/normal. EMG at that time was normal in the right arm and leg with no evidence of radiculopathy or more peripheral neuropathic issues. CT angiography of the head and neck in September 2024 were unremarkable/normal. Repeat MRI of the brain was normal as well. In April 2025, MRIs of the brain, cervical spine, and thoracic spine were entirely normal/unremarkable. 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 The patient last saw Dr. Butcher in June of this year. Laboratory studies were unremarkable including CHEM profile, CBC, sed rate, B12, RODNEY 12, Lyme antibody titers, and Treponema pallidum antibody titers. A lumbar puncture in July 2025 showed 2 white cells, 0 red cells, protein of 23, and all special protein studies were unremarkable/normal. Prothrombin/factor II gene was positive. The patient claims that she continues to get migraine headaches about 2 or 3 times per week. They are triggered by exertion or they are just random. She does not get a visual aura (or any other aura the vast majority of these epi sodes). She will start out with pain behind the right eye and forehead which peaks in about an hour. There is usually nausea and some vomiting. There is photophobia and phonophobia. The headaches last several hours. Naps and Tylenol can help. Currently she has been on Depakote 500 mg twice a day, amitriptyline 25 mg daily, 81 mg aspirin, cyclobenzaprine 5 mg 3 times a day, duloxetine 40 mg a day, and verapamil 40 mg twice a day. Verapamil have been initiated because it is a drug of choice in preventing vasospasm typical of complicated migraines. On September 23, 2025 the patient saw neurosurgery at [facility] (Marvin Jamil and Suzanna Lloyd) for consultation regarding the atypical hemangioma in the thoracic T5 bone. Clinicians wanted to know if the patient would be a candidate for anticoagulation given her positive prothrombin gene. Neurosurgery felt there was no contraindication for anticoagulation regarding this thoracic spine finding. The patient is going to have colonoscopy in the near future, so she is also holding off from anticoagulation initiation at this time. On October 23 around 0730 in the morning the patient noted a right facial droop and increased weakness in the right arm and leg. There was a minimal headache at the time. She came to the emergency room on October 23 at 1347 with a temperature of 36.6, pulse 78, respirate 18, blood pressure 121/84, and O2 saturation 97%. She noted weakness in her right arm and leg and exam showed some mild right facial droop and mild drift in the right arm. She could not hold her left leg off the bed as well as the left. No other abnormalities were noted. She was out of the TNK window. CBC showed slight anemia but CHEM profile was normal. CRP was normal. Chest x-ray was unremarkable. CT scan of the head was unremarkable/normal CT angiography of the head and neck was unremarkable with no vascular stenoses or anomalies. MRI of the brain without contrast was normal with no acute stroke. I reviewed these films. There is no evidence of previous small vessel ischemic disease either. This morning the patient has considerable nausea and vomiting, a right frontal migraine headache with photophobia and still has a little weakness above baseline in her right arm and leg. She feels the face has improved. Allergies Allergy/AdvReac Type Severity Reaction Status Date / Time cortisone Allergy Severe FACE & Verified 10/23/25 15:21 NECK SWELLED AFTER INJ IN LOWER BACK mushroom Allergy Severe Anaphylaxis Verified 10/23/25 15:21 tioconazole Allergy Severe SWELLED Verified 10/23/25 15:21 [From Monistat 1 VAGINAL (tioconazole)] OPENING "SHUT" Latex, Natural Rubber Allergy Intermediate Hives Verified 10/23/25 15:21 morphine Allergy Intermediate Hives Verified 10/23/25 15:21 yellow dye Allergy Intermediate HIVES-YELLOW Verified 10/23/25 15:21 DYE IN TATTOO cephalexin Allergy Unknown CAN'T Verified 10/23/25 15:21 REMEMBER Home Medications Medication Instructions Recorded Confirmed Type multivitamin 1 tab PO QAM 08/24/21 10/23/25 History aspirin 81 mg tablet,delayed 81 mg PO DAILY 08/02/24 10/23/25 History release atorvastatin 80 mg tablet 80 mg PO QPM 08/02/24 10/23/25 History amitriptyline 25 mg tablet 25 mg PO HS 08/03/24 10/23/25 History magnesium oxide 400 mg PO BID 08/03/24 10/23/25 History ondansetron HCl 4 mg tablet 4 mg PO Q6H PRN NAUSEA/VOMITING 08/03/24 10/23/25 History valproic acid (as sodium salt) 500 500 mg (10 mL) PO BID #1,000 mL 10/30/24 10/23/25 Rx mg/10 mL (10 mL) oral solution acetaminophen 325 mg tablet 325 mg PO BID 10/23/25 10/23/25 History cholecalciferol (vitamin D3) 25 25 mcg PO DAILY 10/23/25 10/23/25 History mcg (1,000 unit) capsule (Vitamin D3) cyclobenzaprine 5 mg tablet 5 mg PO TID 10/23/25 10/23/25 History duloxetine 20 mg capsule,delayed 40 mg PO DAILY 10/23/25 10/23/25 History release ergocalciferol (vitamin D2) 1,250 50,000 unit PO WK 10/23/25 10/23/25 History mcg (50,000 unit) capsule famotidine 10 mg tablet 10 mg PO BIDM 10/23/25 10/23/25 History hydroxyzine pamoate 25 mg capsule 25 mg PO BID 10/23/25 10/23/25 History sennosides 8.6 mg tablet 8.6 mg PO HS 10/23/25 10/23/25 History verapamil 40 mg tablet 40 mg PO BID 10/23/25 10/23/25 History Patient History Medical History Cervical cancer Surgical History H/O gastric bypass S/P dilatation and curettage S/P hysterectomy Family History (Updated 10/24/25 @ 10:42 by Alejandro Drummond MD) Grandmother (Maternal) Breast cancer Mother Heart disease Migraine headache Father Sleep apnea COPD (chronic obstructive pulmonary disease) Social History (Updated 10/24/25 @ 10:43 by Alejandro Drummond MD) Smoking Status: Former smoker Tobacco Type: Cigarettes Age Started Using Tobacco: 20; Age Quit Using Tobacco: 29; Cigarettes Per Day: 1 pack per 2 weeks; Hx Alcohol Use: Yes Alcohol type: beer Alcohol Intake Frequency: Monthly or Less Alcohol Intake Frequency Comment: Rare Hx Substance Use: Yes Last Used Substance: Hours (ago) Preferred Language: Divehi Communication Ability: Effective Telesales Team Leader Required: No Beliefs That Will Affect Care: None Current Living Situation: Spouse and Family Current Living Situation Comment: and son current occupational status: unemployed 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, 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 Feels Safe at Home: Yes Assistive Devices: Glasses Review of Systems Constitutional: + fatigue; no fever and no weakness Eyes: + photophobia; no diplopia, no eye pain and no worsening vision Ear, Nose, Mouth, Throat: no ear pain, no tinnitus, no hearing loss, no dizziness, no snoring, no hoarseness and no dysphagia Respiratory: no cough and no dyspnea Cardiovascular: no chest pain, no palpitations and no lightheadedness Gastrointestinal: + nausea and + vomiting; no abdominal pa in Genitourinary: no dysuria, no urinary frequency and no urinary incontinence Musculoskeletal: no back pain, no neck pain, no radicular pain, no joint pain and no myalgia Integumentary: no rash and no lesions Neurologic: + localized weakness and + headache(s); no gait abnormality, no generalized weakness, no tingling, no numbness, no tremor(s), no abnormal movements, no abnormal speech, no confusion and no memory loss Psychiatric: no depression, no irritability, no anxiety, no difficulty concentrating, no confusion and no hallucinations Endocrine: no fatigue and no flushing Hematologic / Lymphatic: no easy bleeding and no easy bruising Allergy / Immunological: no urticaria and no problem reported Exam (Neuro) Physical Exam: The patient is right-handed. The patient is awake, alert, and attentive. Speech is normal without any aphasia or dysarthria. Mentation and thought processes are intact, with full orientation and normal fund of knowledge. Mood and affect are normal and appropriate. Appearance and grooming are normal. Short and long-term memory are intact to conversation. Pupils are 4 mm bilaterally and reactive to light. Extraocular eye muscles are intact without nystagmus. Visual acuity and visual sevilla seem normal grossly to confrontation. There are no deficits to sensation in the face in all 3 distributions of the fifth cranial nerve bilaterally. Corneal reflexes are positive bilaterally. Facial strength and symmetry was normal bilaterally. Hearing seems intact grossly to voice and finger rub bilaterally. Palate moves well without asymmetry. There is normal sternocleidomastoid and trapezius strength bilaterally. Tongue is midline with good strength bilaterally. Neck has a full range of motion without discomfort. Cervical, thoracic, and lumbar spine are nontender to palpation. Gait is narrow based, and she limps favoring the right leg. Stance is reasonable feet together eyes open and stance sitting in bed with feet dangling is normal. With outstretched arms there is no drift. There are no resting, postural, or action tremors. There is no ataxia with finger to nose testing. There is good facility in the hands. No other abnormal involuntary movements are noted. Motor strength is 5/5 diffusely in the arms bilaterally including deltoids, biceps, triceps, brachioradialis, wrist flexors and extensors, microfabrication engineer manager, and intrinsic hand muscles. Motor strength is 5/5 diffusely in the legs bilaterally including hip flexors, quadriceps, hamstrings, gastrocnemius, tibialis anterior, tibialis posterior, and Peroneii muscles bilaterally. Toe extensors are normal and there is good bulk in the extensor digitorum brevis muscles bilaterally. With encouragement on the exam I really do not detect any actual weakness in the arm and leg on the right compared to the left The limbs have good tone without rigidity or spasticity. There is no atrophy noted in the muscles. Muscle bulk is normal, there is no tenderness to palpation, no myotonia to percussion, and no fasciculations seen. Sensory examination is intact to touch and pin throughout all 4 limbs diffusely. Reflexes are 2/4 in the biceps, triceps, brachioradialis, quadriceps, and Achilles tendons bilaterally. Toes are downgoing with plantar stimulation bilaterally. Peripheral pulses are present and of normal quality distally in all 4 limbs. There is no peripheral edema noted in the limbs. Results & Data Vital Signs (Past 12 Hours) Vital Signs Temp Pulse Pulse Resp BP Pulse Ox O2 Del Method 10/24/25 07:51 36.5 C 80 18 109/72 99 Room Air 10/24/25 07:19 69 10/24/25 05:47 74 10/24/25 04:03 36.5 C 85 18 112/76 97 Room Air 10/24/25 03:50 81 10/23/25 22:35 36.7 C 84 16 100/62 97 Room Air PG Care Time/CCT Total # of Minutes Spent Total Time Spent with Patient: Total time spent is greater than 50% in coordination of care (as documented) at patient's floor/unit and/or counseling patient: Coding Level of Care Code 94794 INT INP/OBS CARE 3/75MIN Diagnoses Complicated migraine G43.109 Cervicalgia M54.2 Prothrombin gene mutation D68.52 Time Spent (min) 90
[2025-10-24] MEDS: RIMEGEPANT SULFATE 75 MG OD TAB PO ONE (12:50)
[2025-10-24] MEDS: VERAPAMIL HCL 120 MG TABCR PO SCH (12:50)
[2025-10-24] MEDS: VALPROIC ACID SOLN 500 MG/10 ML UDC PO ONE (12:50)
[2025-10-25] MEDS: METOCLOPRAMIDE HCL INJ 5 MG/ML 2 ML VIAL IV PRN (09:53)
[2025-10-25] MEDS: RIMEGEPANT SULFATE 75 MG OD TAB PO ONE (13:38)
--- NOTE | 2025-10-25 16:33 | Discharge Summary ---
Discharge Summary Date of Service October 25, 2025 Principal Dx & Hospital Course #1 = Principal Diagnosis (1) Stroke-like symptoms: (2) Prothrombin gene mutation: (3) Seizure-like activity: Plan In summary this is a 35-year-old female who presents with sudden onset right sided facial weakness that is persisted overnight from initial symptoms onset on 09/22 in the late evening #Stroke-Like Symptoms // Prothrombin gene mutation Patient presented with right sided facial weakness; last known well was in the late afternoon on 10/22; had previous presentation in 06/2024 at that time was assessed as TIA/CVA, again presented with the similar symptoms specifically with only right sided facial weakness in the early portion of 09/2025, treated as Mobley's palsy and resolved; does follow with neurology in the outpatient setting with recent assessment to rule out multiple sclerosis which was negative; ABCD2 score of 2, NIHSS score of 4 (3 points of which are residual symptoms from prior event in 2023); neurology consulted who suspect a complex hemiplegic migraine - Discontinue verapamil immediate release - Start Verapamil ER 120 mg p.o. daily - MRI brain without contrast without evidence of vascular event - No indication for TTE at this time; study obtained at external hospital facility in 06/2024 was without evidence of cardiac shunt - No clear indication for IVF at this time - Neurology consulted; close follow up in the outpatient setting #Seizure-like activity Chronic condition with reported seizure episode on 10/21, described in similarity to an absence seizure; nonadherent with established antiepileptic therapy in the outpatient setting, will resume during hospital stay; stroke-like symptoms may be recrudescence of prior neurologic injury in the setting of recent breakthrough seizure, though unsure if this is well evidenced The remainder the patient's chronic medical conditions are stable and do not require adjustment to their outpatient regimen at this time Admission HPI Per Admitting Provider Ms. Marcano is a 35-year-old female whose active medical conditions include hem iplegic migraine, epilepsy, functional neurologic symptom disorder, heterozygous prothrombin gene mutation, vertebral body hemangioma among other chronic medical conditions who presents to the [facility] on 10/23 due to sudden onset and persistent right facial weakness that began in the evening of 10/22. The patient was recently evaluated at an external hospital system for similar presentation, diagnosed with Mobley's palsy and given a course of acyclovir with improvement of their symptomatology. At that time the facial weakness involve the entirety of the right face. At presentation today, the patient's weakness primarily involves the face beneath the level of the eye on the right side again. They had similar symptoms that they presented with to an external hospital system approximately 1 year prior with concerns of TIA/CVA. At that time the patient had also presented with right upper and lower extremity weakness, which they still have some degree of to this point in time however are without acute worsening of these symptoms. The patient does endorse slight worsening of their right lower extremity weakness, having increased use of a cane that was previously provided to them for recovery in the past few days. He denies any recent medication adjustments or additions in the outpatient setting. They did recently have diagnostic assessment for possible multiple sclerosis as well as hypercoagulability panel which revealed heterozygosity for prothrombin gene mutation. They were referred to hematology for evaluation who recommended initiation of DOAC therapy which was deferred as the patient does have intermittent episodes of bloody stools which have not yet been evaluated in the outpatient setting. The patient does report having a "seizure episode" that occurred on 10/21 that was a prolonged period of "staring". They have not had an episode of this in quite some time however the patient does report nonadherence with their prescribed valproic acid. Discharge Exam General: Adult female in no acute distress Vital Signs: Reviewed HEENT: Moist mucous membranes; pupils equally round and reactive to light; extraocular motion intact; no gross visual field deficits nor loss of visual acuity Pulmonary: Symmetric chest wall excursion without restriction; clear to auscultation bilaterally Cardiovascular: Regular rate and rhythm without murmurs, rubs, or gallops; S1 and S2 normal; right radial pulse 2+; no notable lower extremity edema Gastrointestinal: Soft, nontender; fullness appreciated in the area of the ascending colon and hepatic flexure with increased dullness to percussion compared to the remaining course of the colon without associated tenderness Musculoskeletal: No appreciable muscle atrophy nor anasarca Neurologic: Cranial nerves II through IV, , and VIII through XII intact; slight diminished sensation to touch involving right V2 and V3 and slight right sided nasolabial flattening and asymmetric smile; remains with diminished strength of the right upper extremity compared to left; the right lower extremity has more notable weakness involving hip extension, knee flexion, and dorsiflexion in comparison to right hip flexion, knee extension, and plantarflexion; the entirety of the right lower extremity does have diminished weakness compared to the left; loss of sensation involving the L5 dermatome of the right lower extremity; speech is clear, with regular gustavo Discharge Plan Discharge Items Patient Disposition: Home - Home Health Services Reason For Visit: TIA Discharge Diagnosis: Complex Hemiplegic Migraine Condition on Discharge: Fair Activity: Per Instructions section Non-emergency contact: Primary Care Provider and Neurologist Call non-emergency contact if: you have any medication questions and your symptoms worsen Follow-up/Referrals: Damaso Butcher MD [Physician] - Liu Estrella NP-C [Primary Care Provider] - (Please call your primary care provider to schedule a hospital follow-up appointment within 7-10 days) Diet: Regular Fluids: 2000ml (8 cups) Addtl Attending Provider Instructions: You were admitted to the [facility] due to a complex hemiplegic migraine. Assessment to rule out an acute stroke was unremarkable, including a normal brain MRI without contrast. Further assessment by Neurology led to recommendations to adjust your outpatient medication regimen with transitioning from verapamil to verapamil ER 120 mg p.o. daily. They also encourage close follow up with likely initiation of CGRP therapy in the coming weeks. Pending Studies at Discharge: No Stand-Alone Forms: My [facility] Medications and DC Order Prescriptions: New verapamil 120 mg Tablet Extended Release 120 mg PO QAM 30 Days Qty: 30 0RF bisacodyl [Gentle Laxative (bisacodyl)] 5 mg Tablet,Delayed Release (Dr/Ec) 5 mg PO HS 30 Days Qty: 30 0RF polyethylene glycol 3350 [Miralax] 17 gram Powder In Packet 17 g PO DAILY 30 Days Qty: 30 0RF Continued atorvastatin 80 mg tablet 80 mg PO QPM aspirin 81 mg tablet,delayed release (DR/EC) 81 mg PO DAILY amitriptyline 25 mg tablet 25 mg PO HS ondansetron HCl 4 mg tablet 4 mg PO Q6H PRN (Reason: NAUSEA/VOMITING) magnesium oxide 400 mg magnesium capsule 400 mg PO BID valproic acid (as sodium salt) 500 mg/10 mL (10 mL) solution 500 mg PO BID Qty: 1000 2RF multivitamin Tablet 1 tab PO QAM acetaminophen 325 mg tablet 325 mg PO BID famotidine 10 mg tablet 10 mg PO BIDM Rx Instructions: 0800 & 1600 ergocalciferol (vitamin D2) 1,250 mcg (50,000 unit) capsule 50,000 unit PO WK Rx Instructions: MONDAYS hydroxyzine pamoate 25 mg capsule 25 mg PO BID cyclobenzaprine 5 mg tablet 5 mg PO TID duloxetine 20 mg capsule,delayed release(DR/EC) 40 mg PO DAILY Discontinued sennosides 8.6 mg tablet 8.6 mg PO HS cholecalciferol (vitamin D3) [Vitamin D3] 25 mcg (1,000 unit) Capsule 25 mcg PO DAILY verapamil 40 mg tablet 40 mg PO BID Discharge Orders: Discharge Order (Routine); Ordered 10/25/25 Ordered By: Florencio Smalls/Other Patient Handouts: Self-Care for Headaches, Migraine Triggers Admission Data Admit Date/Time: 10/23/25 16:13 Attending Provider: Florencio Sierra Admit Provider: Florencio Sierra Primary Care Provider: Liu Estrella Other Providers: Alejandro Drummond; Florencio Sierra Other Interventions: Discharge Summary Assessment (RN) Last Done: 10/25/25 13:42 Hospital Stay Data Consultations 10/23/25 15:07 ED Decision to Admit Stat 10/23/25 18:10 Consult Neurology Routine Diagnostic Imagining Performed 10/23/25 13:54 CT angio head w con Stat CT angio neck with con Stat CT head/brain wo con Stat 10/23/25 18:10 MR brain wo con Routine Pending Results Patient Have Any Pending Studies at Discharge: No Discharge Instructions Given to Patient (Per Discharging Provider) You were admitted to the [facility] due to a complex hemiplegic migraine. Assessment to rule out an acute stroke was unremarkable, including a normal brain MRI without contrast. Further assessment by Neurology led to recommendations to adjust your outpatient medication regimen with transitioning from verapamil to verapamil ER 120 mg p.o. daily. They also encourage close follow up with likely initiation of CGRP therapy in the coming weeks. Total Time Total Time Spent Total Time Spent (In Minutes): I personally spent 75 minutes in the coordination of today's discharge including bedside counselling, physical exam, medication reconciliation, coordination of services with the assistance of case management, and discussion of the patient's discharge medication regimen with their outpatient pharmacist Coding Level of Care Code 15822 INP/OBS DISCH >30 MIN Diagnoses Stroke-like symptoms R29.90 Prothrombin gene mutation D68.52 Seizure-like activity R56.9 Home Health Attestation I certify that this patient is under my care and that I, or a physicians optometric assistant working with me, had a face to-face encounter that meets the home health [id number] encounter requirements with this patient. The encounter with the patient was in whole, or in part, for the following medical condition, which is the primary reason for home health care (list medical condition): I certify that, based on my findings, the following services are medically necessary home health services: My clinical findings support the need for the above services because: Caregiver Instruct Med Mgmt, Safety, Disease Process, Signs to Report OT Assess ADL Status and Restore Function w ADLs PT Assessment for Endurance / Balance / Strength PT Eval for Safety and Mobility PT Eval for Safety, Gait Training, Assistive Devices PT Gait and Balance Training, Strengthening and Safety Safety Skilled Nsg Assess and Instruct on Diet Skilled Nsg Instruction New Medications Skilled Nsg Assess Pt Illness, Disease and Sx Monitoring S/S to Report to Provider Vital Signs Further, I certify that my clinical findings support that this patient is homebound (i.e. absences from home require considerable and taxing effort and are for medical reasons or anglican services or infrequently or of short duration when for other reasons) because: Certification for Home Health Services: Based on the above findings, I certify that this patient is confined to the home and needs intermittent assisted care, physical therapy and/or speech therapy or continues to need occupational therapy. The patient is under my care, and I have initiated the establishment of the plan of care. This patient will be followed by a physician who will periodically review the plan of care.
== END 2025-10-25 15:31 | disposition home health service (06) | DRG 103 ==
LOC: ED 13:47 → 2N 16:13 → INTOOBSV 16:13 → 2N 17:43